=== PATIENT | female | born 1995 ===

== ENCOUNTER → 2017-07-19 | Outpatient (CLI) | payer MEDICAID | LOC: FIMAGING 12:56 | PROVIDERS: ATTEND Midwife | DX: O09.893 Supervision of other high risk pregnancies, third trimester (principal); O99.53 Diseases of the respiratory system complicating the puerperium; Z3A.29 29 weeks gestation of pregnancy ==

== ENCOUNTER → 2017-08-14 | Outpatient (CLI) | payer MEDICAID | LOC: FIMAGING 13:02 | PROVIDERS: ATTEND Midwife | DX: O99.513 Diseases of the respiratory system complicating pregnancy, third trimester (principal); Z3A.33 33 weeks gestation of pregnancy; J45.30 Mild persistent asthma, uncomplicated ==